=== PATIENT | male | born 1965 | race Caucasian/White ===

== ENCOUNTER 2019-07-20 10:40 | Outpatient (CLI) | payer BC | END 2019-07-20 10:41 | disposition home or self-care (01) | LOC: CTENTCT 10:40 | PROVIDERS: ATTEND Otolaryngology Plastic Surgery within the Head & Neck | DX: J32.9 Chronic sinusitis, unspecified (principal) | CPT/HCPCS: 70486 ==

== ENCOUNTER 2021-04-21 19:00 | Outpatient (CLI) | payer BC | END 2021-04-21 19:01 | disposition home or self-care (01) | LOC: SLEEPLAB 19:00 | PROVIDERS: ATTEND Student in an Organized Health Care Education/Training Program | DX: G47.33 Obstructive sleep apnea (adult) (pediatric) (principal); R53.83 Other fatigue; R51.9 Headache, unspecified; E11.9 Type 2 diabetes mellitus without complications; K21.9 Gastro-esophageal reflux disease without esophagitis; R06.83 Snoring; I10 Essential (primary) hypertension | CPT/HCPCS: 95810 ==

== ENCOUNTER 2022-04-21 18:52 | Emergency (ER) | payer BC ==
[2022-04-21] MEDS ORDERED: Boostrix 0.5 ML (Tdap) VIAL (>/=7 yrs of age) ONE (19:27)
[2022-04-21] MEDS ORDERED: Lidocaine 2% PF 5 ML VIAL ONE (19:27)
[2022-04-21] MEDS ORDERED: HYDROcodone/Acetaminophen 5/325 mg Tablet ONE (20:14)
[2022-04-21] MEDS ORDERED: Ibuprofen 800 MG TAB ONE (20:14)
== END 2022-04-21 20:48 | disposition home or self-care (01) ==
LOC: ERS 18:52
DX: S91.011A Laceration without foreign body, right ankle, initial encounter (principal); Z23 Encounter for immunization; I10 Essential (primary) hypertension; E78.00 Pure hypercholesterolemia, unspecified; W20.8XXA Other cause of strike by thrown, projected or falling object, initial encounter
CPT/HCPCS: 12001; 90471; 90715; J2001